=== PATIENT | female | born 1950 | race Caucasian/White ===

== ENCOUNTER 2019-10-19 19:29 | Inpatient (IN) | payer MEDICARE, OTHER ==
[~2019-10-19] VITALS: Ht 157.5 cm; Wt 81.2 kg
[2019-10-19 21:01] LABS: BASOPHILS % 0.4 % (0.0-2.0); HEMATOCRIT. 38.9 % (36.0-48.0); LYMPHOCYTES % 30.5 % (20.0-50.0); MEAN CORPUSCULAR HEMOGLOBIN 28.9 pg (28.0-32.0); MEAN CORPUSCULAR VOLUME 86.7 fL (81.0-99.0); MEAN PLATELET VOLUME 7.9 fl (7.4-10.4); MONOCYTES % 8.7 % (2.0-8.0); NEUTROPHILS % 59.4 % (40.0-76.0); PLATELET 231 x1000/uL (130-400); RED BLOOD CELL COUNT 4.49 mill/uL (4.2-5.4); RED CELL DISTRIBUTION WIDTH 16.9 % (11.6-14.6)
[2019-10-19 21:06] LABS: CHLORIDE 105 mEq/L (98-107)
[2019-10-19] MEDS ORDERED: HYDRALAZINE 20MG/ML VIAL IV NR (23:15)
[2019-10-20] VITALS (9 sets, daily range): BP systolic 111–168; BP diastolic 59–73
[2019-10-20] MEDS ORDERED: ATEN100T MT (01:56)
[2019-10-20] MEDS ORDERED: LISI-604 PO (01:56)
[2019-10-20] MEDS ORDERED: PNEUMOCOCCAL 23-VAL P-SAC VAC 0.5 ML IM ONE (08:00)
[2019-10-20 08:29] LABS: HDL CHOLESTEROL 35 mg/dL (40-59); LDL CHOLESTEROL 104 mg/dL (5-100)
[2019-10-20 08:31] LABS: CREATINE KINASE 54 IU/L (26-192)
[2019-10-20 08:33] LABS: CREATINE KINASE MB FRACTION < 1.0 ng/mL (0.5-3.6)
[2019-10-20] MEDS: ENOXAPARIN 40MG/0.4ML SYR SUBCUT SCH (08:53)
[2019-10-20] MEDS: CLONIDINE 0.1MG TABLET PO PRN (08:54)
[2019-10-20] MEDS: HYDROCODONE/ACETAMINOPHEN 5/325MG TABLET PO PRN ×2 (12:49→20:32)
[2019-10-20] MEDS ORDERED: ONDANSETRON HCL 4MG/2ML INJ IV PRN (13:45)
[2019-10-20] MEDS ORDERED: IPRATROPIUM/ALBUTEROL 0.5-3(2.5)MG/3ML NEB HHN PRN (13:45)
[2019-10-20] MEDS ORDERED: DOCUSATE SODIUM 100MG CAPSULE PO PRN (13:45)
[2019-10-20] MEDS ORDERED: GUAIFENESIN 200MG/10ML SUGAR FREE UDC PO PRN (13:45)
[2019-10-20] MEDS ORDERED: LORAZEPAM 0.5MG TABLET PO PRN (13:45)
[2019-10-20] MEDS ORDERED: ACETAMINOPHEN 325MG TABLET PO PRN (13:45)
[2019-10-20] MEDS ORDERED: MORPHINE SULFATE 2 MG/ML CPJ (NOT FOR IM USE) IV PRN (13:45)
[2019-10-20] MEDS: ATENOLOL 50 MG TABLET PO SCH (14:09)
[2019-10-20 16:36] LABS: CREATINE KINASE 48 IU/L (26-192)
[2019-10-20 16:37] LABS: CREATINE KINASE MB FRACTION < 1.0 ng/mL (0.5-3.6)
[2019-10-20 16:54] LABS: *BARBITURATES SCREEN URINE NEGATIVE (NEGATIVE); CANNABINOID URINE SCREEN NEGATIVE (NEGATIVE); METHADONE URINE SCREEN NEGATIVE (NEGATIVE); OPIATES URINE SCREEN PRESUMTIVE POSITIVE (NEGATIVE); PHENCYCLIDINE URINE SCREEN NEGATIVE (NEGATIVE)
[2019-10-20 16:55] LABS: *AMPHETAMINES SCREEN URINE NEGATIVE (NEGATIVE); *BENZODIAZEPINES SCREEN URINE NEGATIVE (NEGATIVE); *COCAINE SCREEN URINE NEGATIVE (NEGATIVE)
[2019-10-20] MEDS: LISINOPRIL 20MG TABLET PO SCH (20:32)
[2019-10-21 04:00] VITALS: BP 133/98
[2019-10-21 07:08] LABS: BASOPHILS % 0.8 % (0.0-2.0); EOSINOPHILS % 1.4 % (0.0-5.0); HEMATOCRIT. 42.9 % (36.0-48.0); HEMOGLOBIN. 14.2 g/dL (12.0-16.0); LYMPHOCYTES % 35.4 % (20.0-50.0); MEAN CORPUSCULAR HEMOGLOBIN 28.8 pg (28.0-32.0); MEAN CORPUSCULAR VOLUME 87.1 fL (81.0-99.0); MEAN PLATELET VOLUME 7.9 fl (7.4-10.4); MONOCYTES % 8.4 % (2.0-8.0); PLATELET 254 x1000/uL (130-400); RED BLOOD CELL COUNT 4.93 mill/uL (4.2-5.4); RED CELL DISTRIBUTION WIDTH 16.7 % (11.6-14.6)
[2019-10-21 07:54] LABS: CHLORIDE 101 mEq/L (98-107)
[2019-10-21 08:00] VITALS: BP 146/72
[2019-10-21] MEDS ORDERED: REGADENOSON 0.4 MG/5 ML IV NR (09:00)
[2019-10-21] MEDS: ASPIRIN 81MG EC TABLET PO SCH (09:17)
[2019-10-21] MEDS: ATENOLOL 50 MG TABLET PO SCH (09:18)
[2019-10-21] MEDS: ENOXAPARIN 40MG/0.4ML SYR SUBCUT SCH (09:20)
[2019-10-21 12:00] VITALS: BP 155/72
[2019-10-21] MEDS: HYDROCODONE/ACETAMINOPHEN 5/325MG TABLET PO PRN (13:32)
[2019-10-21 16:00] VITALS: BP 165/71
[2019-10-21] MEDS: CLONIDINE 0.1MG TABLET PO PRN (17:27)
[2019-10-21 20:00] VITALS: BP 149/59
[2019-10-21] MEDS: LISINOPRIL 20MG TABLET PO SCH (20:33)
[2019-10-21] MEDS ORDERED: ATORVASTATIN CALCIUM 10MG TABLET PO SCH (21:00)
[2019-10-22 00:05] VITALS: BP 145/66
[2019-10-22 04:00] VITALS: BP 134/71
[2019-10-22 08:00] VITALS: BP 146/60
[2019-10-22] MEDS ORDERED: REGADENOSON 0.4 MG/5 ML IV ONE (10:39)
[2019-10-22] MEDS ORDERED: ASPI-1158 PO (11:54)
[2019-10-22] MEDS ORDERED: ATOR10TA PO (11:54)
[2019-10-22 12:00] VITALS: BP 130/67
[2019-10-22] MEDS: ASPIRIN 81MG EC TABLET PO SCH (13:00)
[2019-10-22] MEDS: ATENOLOL 50 MG TABLET PO SCH (13:01)
[2019-10-22] MEDS: ENOXAPARIN 40MG/0.4ML SYR SUBCUT SCH (13:01)
[2019-10-22 15:06] VITALS: BP 130/67
== END 2019-10-22 15:30 | disposition home or self-care (01) | DRG 305 ==
LOC: ER 19:29 → 7WST 23:04 → EDBEDREQ 23:09 → EDBEDREQTM 23:09 → ENRESERV 10-20 00:06 → 7WST 10-20 02:12
PROVIDERS: ADMIT Internal Medicine; ATTEND Internal Medicine
DX: I16.1 Hypertensive emergency (principal); I50.32 Chronic diastolic (congestive) heart failure; I24.8 Other forms of acute ischemic heart disease; E78.5 Hyperlipidemia, unspecified; F41.9 Anxiety disorder, unspecified; I11.0 Hypertensive heart disease with heart failure; E78.00 Pure hypercholesterolemia, unspecified; Z79.82 Long term (current) use of aspirin; Z82.49 Family history of ischemic heart disease and other diseases of the circulatory system
CPT/HCPCS: 36415; 71045; 78452; 80048; 80061; 80305; 82550; 82553; 83735; 83880; 84443; 84484; 85379; 90732; 93005; 93017; 93306; 99285; A9500; J0360; J1650; J2785

== ENCOUNTER 2020-05-08 01:58 | Emergency (ER) | payer MEDICARE, OTHER ==
[~2020-05-08] VITALS: Ht 167.6 cm; Wt 69.0 kg
[~2020-05-08 01:58] MED LIST: ASPI-1158 PO; ATEN100T MT; ATOR10TA PO; LISI-604 PO
[2020-05-08] MEDS ORDERED: LABETALOL 5MG/ML SYR 20 MG/4 ML SYRINGE IV ONE (02:30)
[2020-05-08 03:30] LABS: CHLORIDE 101 mEq/L (98-107)
[2020-05-08 03:39] LABS: BASOPHILS % 0.8 % (0.0-2.0); EOSINOPHILS % 1.6 % (0.0-5.0); HEMATOCRIT. 43.1 % (36.0-48.0); HEMOGLOBIN. 14.6 g/dL (12.0-16.0); LYMPHOCYTES % 35.3 % (20.0-50.0); MEAN CORPUSCULAR VOLUME 88.6 fL (81.0-99.0); MEAN PLATELET VOLUME 7.8 fl (7.4-10.4); MONOCYTES % 7.9 % (2.0-8.0); NEUTROPHILS % 54.4 % (40.0-76.0); PLATELET 276 x1000/uL (130-400); RED BLOOD CELL COUNT 4.86 mill/uL (4.2-5.4)
[2020-05-08] MEDS ORDERED: AMLODIPINE 5MG TABLET PO ONE (05:30)
[2020-05-08 06:30] VITALS: BP 179/68
== END 2020-05-08 07:17 | disposition home or self-care (01) ==
LOC: ER 01:58
DX: I16.1 Hypertensive emergency (principal); R06.02 Shortness of breath; Z79.82 Long term (current) use of aspirin
CPT/HCPCS: 36415; 71045; 80053; 83880; 84484; 85025; 93005; 96374; 99285; J3490

== ENCOUNTER 2020-08-19 13:15 | Emergency (ER) | payer MEDICARE, OTHER ==
[~2020-08-19] VITALS: Ht 160 cm; Wt 70.0 kg
[2020-08-19 15:18] VITALS: BP 139/83
== END 2020-08-19 15:20 | disposition home or self-care (01) ==
LOC: ER 13:15
DX: I10 Essential (primary) hypertension (principal); Z79.82 Long term (current) use of aspirin
CPT/HCPCS: 99283

== ENCOUNTER 2021-01-18 03:33 | Emergency (ER) | payer MEDICARE, OTHER ==
[~2021-01-18] VITALS: Ht 154.9 cm; Wt 72.0 kg
[~2021-01-18 03:33] MED LIST changes: -ASPI-1158 PO; +ASPI-1406 PO; -ATEN100T MT; +HYDR-4348 MT; -LISI-604 PO; +LISI20TA31 PO; +METO-539 PO; +hydrochlorothiazide PO; +risperdal PO
[2021-01-18 04:30] LABS: BASOPHILS % 0.7 % (0.0-2.0); EOSINOPHILS % 1.4 % (0.0-5.0); HEMATOCRIT. 40.9 % (36.0-48.0); HEMOGLOBIN. 13.9 g/dL (12.0-16.0); LYMPHOCYTES % 34.4 % (20.0-50.0); MEAN CORPUSCULAR HEMOGLOBIN 29.4 pg (28.0-32.0); MEAN CORPUSCULAR VOLUME 86.7 fL (81.0-99.0); MEAN PLATELET VOLUME 7.8 fl (7.4-10.4); NEUTROPHILS % 54.5 % (40.0-76.0); PLATELET 273 x1000/uL (130-400); RED BLOOD CELL COUNT 4.72 mill/uL (4.2-5.4); RED CELL DISTRIBUTION WIDTH 14.9 % (11.6-14.6)
[2021-01-18] MEDS ORDERED: ACETAMINOPHEN 325MG TABLET PO ONE (04:30)
[2021-01-18] MEDS ORDERED: HYDRALAZINE 20MG/ML VIAL IV ONE (04:30)
[2021-01-18 04:31] LABS: CHLORIDE 102 mEq/L (98-107)
[2021-01-18 06:45] VITALS: BP 150/54
== END 2021-01-18 06:47 | disposition home or self-care (01) ==
LOC: ER 03:33
DX: R51.9 Headache, unspecified (principal); I10 Essential (primary) hypertension; Z79.899 Other long term (current) drug therapy
CPT/HCPCS: 36415; 70450; 71045; 80053; 83880; 84484; 85025; 93005; 96374; 99285; J0360

== ENCOUNTER 2021-02-04 09:59 | Inpatient (IN) | payer MEDICARE, OTHER ==
[~2021-02-04] VITALS: Ht 157.5 cm; Wt 62.6 kg
[2021-02-04 10:45] LABS: BASOPHILS % 0.8 % (0.0-2.0); EOSINOPHILS % 0.9 % (0.0-5.0); HEMATOCRIT. 40.8 % (36.0-48.0); HEMOGLOBIN. 13.8 g/dL (12.0-16.0); LYMPHOCYTES % 23.5 % (20.0-50.0); MEAN CORPUSCULAR HEMOGLOBIN 29.3 pg (28.0-32.0); MEAN CORPUSCULAR VOLUME 86.6 fL (81.0-99.0); MEAN PLATELET VOLUME 7.4 fl (7.4-10.4); MONOCYTES % 6.7 % (2.0-8.0); NEUTROPHILS % 68.1 % (40.0-76.0); PLATELET 266 x1000/uL (130-400); RED BLOOD CELL COUNT 4.71 mill/uL (4.2-5.4)
[2021-02-04 10:55] LABS: CHLORIDE 94 mEq/L (98-107)
[2021-02-04] MEDS ORDERED: MORPHINE SULFATE 4 MG/ML CPJ (NOT FOR IM USE) IV ONE (12:15)
[2021-02-04] MEDS ORDERED: ASPIRIN 81MG TABLET PO ONE (12:45)
[2021-02-04] MEDS ORDERED: ATEN100T PO (20:26)
[2021-02-04] MEDS ORDERED: RISP1TAB97 PO (20:26)
[2021-02-04] MEDS ORDERED: LISI40TA13 PO (20:26)
[2021-02-04] MEDS ORDERED: HYDR25TA PO (20:26)
[2021-02-04] MEDS ORDERED: ATOR40TA70 PO (20:26)
[2021-02-04] MEDS ORDERED: PANT40TA51 PO (20:26)
[2021-02-04 20:48] VITALS: BP 162/77
[2021-02-04 21:34] VITALS: BP 162/77
[2021-02-04] MEDS ORDERED: HYDROCODONE/ACETAMINOPHEN 5/325MG TABLET PO PRN (22:00)
[2021-02-04] MEDS ORDERED: ACETAMINOPHEN 325MG TABLET PO PRN (22:00)
[2021-02-04] MEDS: RISPERIDONE 1MG TABLET PO SCH (22:10)
[2021-02-04] MEDS: ATORVASTATIN CALCIUM 40MG TABLET PO SCH (22:11)
[2021-02-05] VITALS: BP 118/63
[2021-02-05 04:00] VITALS: BP 106/69
[2021-02-05 05:40] LABS: CHLORIDE 98 mEq/L (98-107)
[2021-02-05 05:51] LABS: CREATINE KINASE 39 IU/L (26-192); LDL CHOLESTEROL 146 mg/dL (5-100)
[2021-02-05 05:53] LABS: HDL CHOLESTEROL 48 mg/dL (40-59)
[2021-02-05 05:56] LABS: CREATINE KINASE MB FRACTION < 1.0 ng/mL (0.5-3.6)
[2021-02-05 06:18] LABS: BASOPHILS % 0.6 % (0.0-2.0); EOSINOPHILS % 1.6 % (0.0-5.0); HEMATOCRIT. 40.5 % (36.0-48.0); HEMOGLOBIN. 13.6 g/dL (12.0-16.0); LYMPHOCYTES % 38.7 % (20.0-50.0); MEAN CORPUSCULAR HEMOGLOBIN 29.6 pg (28.0-32.0); MEAN CORPUSCULAR VOLUME 87.8 fL (81.0-99.0); MEAN PLATELET VOLUME 7.6 fl (7.4-10.4); MONOCYTES % 10.4 % (2.0-8.0); NEUTROPHILS % 48.7 % (40.0-76.0); PLATELET 270 x1000/uL (130-400); RED BLOOD CELL COUNT 4.61 mill/uL (4.2-5.4); RED CELL DISTRIBUTION WIDTH 14.9 % (11.6-14.6)
[2021-02-05 08:00] VITALS: BP 109/62
[2021-02-05] MEDS: LISINOPRIL 40MG TABLET PO SCH (09:00)
[2021-02-05] MEDS: ATENOLOL 50 MG TABLET PO SCH (09:00)
[2021-02-05] MEDS: PANTOPRAZOLE 40MG DR TABLET PO SCH (09:07)
[2021-02-05] MEDS: ASPIRIN 81MG EC TABLET PO SCH (09:07)
[2021-02-05] MEDS: HEPARIN 5000 UNITS/ML VIAL SUBCUT SCH ×2 (09:07→20:29)
[2021-02-05 09:36] LABS: *BARBITURATES SCREEN URINE NEGATIVE (NEGATIVE); *BENZODIAZEPINES SCREEN URINE NEGATIVE (NEGATIVE); *COCAINE SCREEN URINE NEGATIVE (NEGATIVE); METHADONE URINE SCREEN NEGATIVE (NEGATIVE); OPIATES URINE SCREEN PRESUMTIVE POSITIVE (NEGATIVE)
[2021-02-05 09:41] LABS: CANNABINOID URINE SCREEN NEGATIVE (NEGATIVE)
[2021-02-05 09:43] LABS: *AMPHETAMINES SCREEN URINE NEGATIVE (NEGATIVE); PHENCYCLIDINE URINE SCREEN NEGATIVE (NEGATIVE)
[2021-02-05 12:00] VITALS: BP 122/61
[2021-02-05] MEDS ORDERED: REGADENOSON 0.4 MG/5 ML IV SCH (12:00)
[2021-02-05 16:00] VITALS: BP 114/63
[2021-02-05 16:14] LABS: CREATINE KINASE 36 IU/L (26-192)
[2021-02-05 16:15] LABS: CREATINE KINASE MB FRACTION < 1.0 ng/mL (0.5-3.6)
[2021-02-05 20:00] VITALS: BP 120/70
[2021-02-05] MEDS: RISPERIDONE 1MG TABLET PO SCH (20:28)
[2021-02-05] MEDS: ATORVASTATIN CALCIUM 40MG TABLET PO SCH (20:28)
[2021-02-06] VITALS: BP 116/62
[2021-02-06 04:00] VITALS: BP 114/67
[2021-02-06 07:08] LABS: BASOPHILS % 0.6 % (0.0-2.0); CHLORIDE 101 mEq/L (98-107); HEMATOCRIT. 41.2 % (36.0-48.0); HEMOGLOBIN. 13.8 g/dL (12.0-16.0); LYMPHOCYTES % 37.1 % (20.0-50.0); MEAN CORPUSCULAR HEMOGLOBIN 29.4 pg (28.0-32.0); MEAN CORPUSCULAR VOLUME 87.5 fL (81.0-99.0); MEAN PLATELET VOLUME 7.8 fl (7.4-10.4); MONOCYTES % 9.7 % (2.0-8.0); NEUTROPHILS % 50.6 % (40.0-76.0); PLATELET 262 x1000/uL (130-400); RED BLOOD CELL COUNT 4.71 mill/uL (4.2-5.4); RED CELL DISTRIBUTION WIDTH 14.9 % (11.6-14.6)
[2021-02-06 08:00] VITALS: BP 119/74
[2021-02-06] MEDS ORDERED: REGADENOSON 0.4 MG/5 ML IV ONE (09:11)
[2021-02-06] MEDS: LISINOPRIL 40MG TABLET PO SCH (10:01)
[2021-02-06] MEDS: ASPIRIN 81MG EC TABLET PO SCH (10:01)
[2021-02-06] MEDS: PANTOPRAZOLE 40MG DR TABLET PO SCH (10:01)
[2021-02-06] MEDS: ATENOLOL 50 MG TABLET PO SCH (10:02)
[2021-02-06] MEDS: HEPARIN 5000 UNITS/ML VIAL SUBCUT SCH (10:02)
[2021-02-06 12:00] VITALS: BP 121/71
[2021-02-06 15:27] VITALS: BP 118/72
== END 2021-02-06 16:39 | disposition home or self-care (01) | DRG 311 ==
LOC: ER 09:59 → EDBEDREQTM 16:55 → EDBEDREQ 16:55 → ENRESERV 19:06 → 5WST 20:29 → 6WST 20:30 → 5WST 22:31
PROVIDERS: ADMIT Internal Medicine; ATTEND Internal Medicine
DX: I24.8 Other forms of acute ischemic heart disease (principal); I50.32 Chronic diastolic (congestive) heart failure; E87.1 Hypo-osmolality and hyponatremia; F41.9 Anxiety disorder, unspecified; I11.0 Hypertensive heart disease with heart failure; E78.5 Hyperlipidemia, unspecified; Z20.822 Contact with and (suspected) exposure to COVID-19; E66.9 Obesity, unspecified; I27.20 Pulmonary hypertension, unspecified; Z82.49 Family history of ischemic heart disease and other diseases of the circulatory system; Z83.3 Family history of diabetes mellitus; Z68.25 Body mass index [BMI] 25.0-25.9, adult; Z79.82 Long term (current) use of aspirin; Z79.899 Other long term (current) drug therapy; M15.9 Polyosteoarthritis, unspecified; Z71.3 Dietary counseling and surveillance
CPT/HCPCS: 36415; 71045; 78452; 80048; 80053; 80061; 80305; 82550; 82553; 83605; 83735; 83880; 84443; 84484; 85025; 85651; 86140; 87426; 93005; 93017; 93306; 99285; A9500; J1644; J2270; J2785